=== PATIENT | male | born 1985 ===

== ENCOUNTER 2019-08-15 12:05 | Emergency (ER) | payer SELFPAY ==
[2019-08-15 12:21] VITALS: BP 143/71; PULSE 83; RESP 16; TEMP 36.6; O2SAT 97; BMI 28.2
[2019-08-15 12:55] VITALS: BP 129/81; PULSE 62; RESP 18; O2SAT 98
--- NOTE | 2019-08-15 12:57 | ED_ITS ---
HPI - Abdominal Pain General: Chief Complaint: Abdominal Pain Stated Complaint: abd pain Time Seen by Provider: 08/15/19 12:56 History of Present Illness: HPI narrative: 34 yo male abdominal pain for the last 2 days mostly infraumbilical he is tried various [id number] medications particularly laxatives no release is very crampy and intermittent he felt like he was constipated. He states initially began periumbilical and moved down. He denies dysuria urgency or frequency denies hematuria he has had diarrhea after he took laxatives he has been mildly nauseated but no vomiting. He is not had any GI blood loss he seen no melenic stools no frankly hematic Francis stools no hematemesis or coffee-ground emesis. He felt like he had a subjective fever at times but never actually measured it. He has no history of nephrolithiasis. He denies any flank pain. MD elicited complaint: abdominal pain Pertinent past history: constipation Onset (ago): day(s) (2) Pain Consistency: intermittent Location: Periumbilical Severity: moderate Quality: cramping Radiation: suprapubic Migration to: suprapubic Exacerbating factors: movement Relieving factors: rest Associated Symptoms: Reports anorexia, bloating, constipation, GI cramping, diarrhea, fever(s) and loose stools; Denies dyspepsia, dysuria, hematochezia, hematuria, hematemesis, fecal incontinence, melena, nausea, syncope and vomiting Treatments prior to arrival: other (Laxatives) Review of Systems Const: Reports: fever(s) ENMT: Denies: throat pain, ear or mastoid pain, nasal discharge or nasal congestion Card: Denies: syncope Resp: Denies: dyspnea, productive cough or non-productive cough GI: Reports: diarrhea, constipation, bloating and GI cramping; Denies: nausea, vomiting, hematemesis, fecal incontinence, hematochezia or melena : Denies: dysuria or hematuria Skin/Breast: Denies: rash or pruritus PENDING SALE TO [facility] ED PFSH: Medical History No significant past medical history Surgical History S/P tonsillectomy and adenoidectomy Social History Smoking and tobacco status: current every day smoker Alcohol intake: current Alcohol intake frequency: 0-2 Drinks per Day Physical Exam Const: COMMON NORMALS: no acute distress GENERAL APPEARANCE: cooperative and comfortable ORIENTATION/CONSCIOUSNESS: Yes awake, Yes oriented to person, Yes oriented to place and Yes oriented to time HENMT: COMMON NORMALS: normocephalic, atraumatic and hearing grossly normal bilaterally HEAD & SCALP: normocephalic and atraumatic Eye: COMMON NORMALS: Equal, round and reactive pupils present, EOMs intact bilaterally, conjunctivae normal and no scleral icterus CONJUNCTIVA: Yes conjunctivae normal PUPIL: Yes Equal, round and reactive pupils present Neck/C-Spine: COMMON NORMALS: full ROM, no lymphadenopathy, supple and no JVD Lymph: LYMPHATIC: no lymphadenopathy noted and no lymphedema noted Resp: COMMON NORMALS: normal respiratory effort, No retractions, No use of accessory muscles and clear to auscultation bilaterally AUSCULTATION: clear to auscultation bilaterally Cardio: COMMON NORMALS: no JVD, regular rate, regular rhythm and No murmurs present (Cardio) RATE: regular rate RHYTHM: regular rhythm GI: AUSCULTATION: Yes normoactive bowel sounds PALPATION: Yes Tenderness to palpation present (GI) (Periumbilical) and No Guarding due to palpation present (GI) Extremity: COMMON NORMALS: normal to inspection, capillary refill normal, no clubbing, cyanosis or edema, no calf tenderness and no pedal edema Neuro: SENSORIUM/ORIENTATION: Yes oriented to person, Yes oriented to place and Yes oriented to time Skin: COMMON NORMALS: no rashes or lesions noted GENERAL SKIN EXAM: no rashes or lesions noted Course Vital Signs: Vital signs: Vital Signs Temperature 97.8 F 08/15/19 12:21 Pulse Rate 71 08/15/19 15:21 Respiratory Rate 18 08/15/19 15:21 Blood Pressure 123/88 08/15/19 15:21 Pulse Oximetry 97 08/15/19 15:21 MDM - Abdominal Pain MDM Narrative: Medical decision making narrative: CT shows diverticulitis. Patient was discharged home with hydrocodone and Zofran. Due to a anomaly in the EMR, the ciprofloxacin and metronidazole that he was prescribed at the time of discharge is not recorded on my note. See the discharge instructions that were scanned back into the chart after he was discharged. They include both the Cipro and metronidazole. Patient advised to return if he has uncontrollable discomfort or worsening of symptoms increased fever. Recommend clear liquid diet 24 to 48 hours and advance as tolerated. Follow-up with his primary care doctor within the next 7 to 10 days. Lab Data: Labs: Lab Results 08/15/19 08/15/19 Range/Units 12:50 12:50 WBC 9.6 (4.0-10.0) 10^3/ uL RBC 5.25 (4.1-5.3) 10^6/u L Hgb 15.2 (11.7-16.6) g/dL Hct 46.0 (42.0-52.0) % MCV 87.6 (80-94) fL MCH 29.0 (28.0-34.0) pg MCHC 33.0 (30.0-36.0) g/dL RDW 12.2 (12.1-15.1) % Plt Count 227 (130-400) 10^3/c mm MPV 10.4 (7.4-10.4) fL Neut % (Auto) 73.2 % Lymph % (Auto) 18.5 % [place] % (Auto) 6.2 % Eos % (Auto) 1.3 % Baso % (Auto) 0.4 % Neut # (Auto) 7.00 (1.8-7.7) 10^3/u L Lymph # (Auto) 1.8 (0.8-4.8) 10^3/u L [place] # (Auto) 0.6 (0.2-0.9) 10^3/u L Eos # (Auto) 0.1 (0.0-0.8) 10^3/u L Baso # (Auto) 0.0 (0.0-0.1) 10^3/u L Nucleated RBC % (a uto) 0 % Nucleated RBCs # 0.0 /100WBC Sodium 136 (136-145) mmol/L Potassium 3.7 (3.5-5.1) mmol/L Chloride 100 (98-107) mmol/L Carbon Dioxide 26 (22-29) mmol/L Anion Gap 13.7 (5-19) BUN 9 (6-20) mg/dL Creatinine 0.7 (0.7-1.2) mg/dL GFR Calculation 128.3 (90-130) mL/min Glucose 127 H (65-115) mg/dL Calculated Osmolal ity 280 L (285-295) mOsm/k g Calcium 9.2 (8.5-10.5) mg/dL Total Bilirubin 0.6 (0.15-1.2) mg/dL AST 23 (0-40) U/L ALT 24 (0-41) U/L Alkaline Phosphata se 79 (40-130) IU/L Total Protein 7.4 (6.6-8.7) g/dL Albumin 4.4 (3.5-5.2) g/dL Globulin 3.0 (1.3-4.6) g/dL Lipase 19 (13-60) U/L Discharge Plan Discharge Patient Disposition: Home, Self-Care Clinical Impression: Diverticulitis Condition: Stable Prescriptions: New hydrocodone-acetaminophen 5-325 mg tablet 1 tab PO Q6H PRN (Reason: pain) Qty: 20 RF: 0 Zofran 4 mg tablet 4 mg PO Q6H PRN (Reason: nausea and vomiting) Qty: 20 RF: 0 No Action ibuprofen 200 mg Tablet 800 mg PO PRN RF: 0 Discharge Orders: Discharge Order (Routine); Ordered 08/15/19 Ordered By: Calin Garza Discharge Diet: Clear Liquid Discharge Activity: Increase activity as tolerated Patient Instructions: Clear Liquid Diet (ED) Stand Alone Forms: Work/School Release Discharge Date/Time: 08/15/19 15:21 Coding Level of Care Code ED Lieutenant Firefighter for Chg Fwd Exam Comprehensive
[2019-08-15 12:58] LABS: Basophils % 0.4 %; Eosinophils # 0.1 10^3/uL (0.0-0.8); Eosinophils % 1.3 %; Hemoglobin 15.2 g/dL (11.7-16.6); Lymphocytes # 1.8 10^3/uL (0.8-4.8); Lymphocytes % 18.5 %; Mean Corpuscular Volume 87.6 fL (80-94); Mean Platelet Volume 10.4 fL (7.4-10.4); Monocytes # 0.6 10^3/uL (0.2-0.9); Monocytes % 6.2 %; Neutrophils % 73.2 %; Nucleated Red Blood Cells % 0 %; Platelet Count 227 10^3/cmm (130-400); Red Blood Count 5.25 10^6/uL (4.1-5.3); Red Cell Distribution Width 12.2 % (12.1-15.1); White Blood Count 9.6 10^3/uL (4.0-10.0)
[2019-08-15 13:13] LABS: Alanine Aminotransferase 24 U/L (0-41); Albumin Level 4.4 g/dL (3.5-5.2); Alkaline Phosphatase 79 IU/L (40-130); Anion Gap 13.7 (5-19); Aspartate Amino Transferase 23 U/L (0-40); Blood Urea Nitrogen 9 mg/dL (6-20); Calcium 9.2 mg/dL (8.5-10.5); Carbon Dioxide 26 mmol/L (22-29); Chloride 100 mmol/L (98-107); Glomerular Filtration Rate 128.3 mL/min (90-130); Glucose 127 mg/dL (65-115); Lipase 19 U/L (13-60); Osmolality Calculated 280 mOsm/kg (285-295); Potassium 3.7 mmol/L (3.5-5.1); Sodium 136 mmol/L (136-145); Total Bilirubin 0.6 mg/dL (0.15-1.2); Total Protein 7.4 g/dL (6.6-8.7)
--- NOTE | 2019-08-15 13:14 | CT_ITS ---
WS: [id number] CT ABDOMEN AND PELVIS WITH CONTRAST HISTORY: Diffuse abdominal pain. TECHNIQUE: Imaging performed of the abdomen and pelvis with IV contrast. Single phase imaging of the abdomen. Coronal and sagittal reformats are submitted. All CT scans at [facility] use at least one of these dose optimization techniques: automated exposure control; mA and/or kV adjustment per patient size (includes targeted exams where dose is matched to clinical indication); or iterativ e reconstruction. IV CONTRAST: Omnipaque 300; 95 mL IV. Oral contrast: No DLP: 937.89 mGy.cm COMPARISON: None available. Lower thorax: Lung bases are clear. Heart is normal size. No hiatal hernia. Liver/biliary system: Normal size with no intrahepatic dilatation. Gallbladder: Normal. No gallstones or wall thickening. No pericholecystic fluid. Pancreas: Normal. Spleen: Normal size with granulomata. Adrenal glands: Normal. Right kidney: Normal. Left kidney: Normal. Aorta: Normal. Lymphadenopathy: None. Free fluid: None. GI tract: Moderate length segment area of inflammation involving the distal descending and sigmoid co juan antonio. There are numerous diverticula with pericolonic fat stranding and edema. No focal abscess. Mild narrowing of the lumen. Abdominal wall: Unremarkable abdominal wall. No hernia. Pelvis: No free fluid. Normally distended urinary bladder. No adenopathy. Bones: Unremarkable. CT/CT abdomen pelvis w con* [id number] IMPRESSION: 1. Moderate segment mild to moderate acute distal descending and sigmoid diver ticulitis. 2. Normal appendix. 3. No abscess or free fluid.
[2019-08-15] MEDS: sodium chloride 0.9% 1,000 ML 999 ML IV (13:19)
[2019-08-15 13:20] VITALS: RESP 16; O2SAT 99
[2019-08-15] MEDS: morphine 4 mg/mL SDV 1 mL IVP (13:20)
[2019-08-15] MEDS: ondansetron 2 mg/ML SDV 2 mL 4 MG IVP (13:21)
[2019-08-15 13:22] VITALS: BP 119/79; PULSE 66; RESP 16; O2SAT 98
[2019-08-15 14:27] VITALS: BP 124/61; PULSE 57; RESP 16; O2SAT 98
[2019-08-15] MEDS: iohexol 300 mg/mL 100 mL Btl IV (14:45)
[2019-08-15 15:21] VITALS: BP 123/88; PULSE 71; RESP 18; O2SAT 97
== END 2019-08-15 15:21 | disposition home or self-care (01) ==
PROVIDERS: Emergency Medicine; Emergency Provider Family Medicine
DX: K57.92 Diverticulitis of intestine, part unspecified, without perforation or abscess without bleeding (principal); F17.210 Nicotine dependence, cigarettes, uncomplicated
CPT/HCPCS: 12345; 74177; 80053; 83690; 85025; 96361; 96374; 96375; 99282; 99283; J2270; J2405; J7030; Q9967